=== PATIENT | female | born 1980 | race Caucasian/White ===

== ENCOUNTER 2022-05-28 08:14 | Outpatient (CLI) | payer OTHER, SELFPAY ==
[2022-05-28 14:20] LABS: Chloride* 105 mmol/L (96-114); Potassium* 4.8 mmol/L (3.6-5.1); Sodium* 137 mmol/L (135-149)
[2022-05-28 14:22] LABS: Cholesterol* 216 mg/dL (90-199); Creatinine* 0.9 mg/dL (0.5-1.5); Estimated Glomerular Filt Rate 81 ml/min
[2022-05-28 14:23] LABS: Blood Urea Nitrogen* 16 mg/dL (5-24); Calcium* 9.2 mg/dL (8.4-10.6); Carbon Dioxide* 26 mmol/L (20-32); Glucose* 95 mg/dL (60-115); Triglycerides* 109 mg/dL (40-149)
[2022-05-28 14:24] LABS: HDL Cholesterol* 45 mg/dL (>=50); LDL Cholesterol Calculated 149 mg/dL (<100)
== END 2022-05-28 08:15 | disposition home or self-care (01) ==
PROVIDERS: PCP Family Medicine; Visit Provider Family Medicine
DX: E78.2 Mixed hyperlipidemia (principal); E55.9 Vitamin D deficiency, unspecified; F41.9 Anxiety disorder, unspecified
CPT/HCPCS: 80048; 80061

== ENCOUNTER 2023-04-01 08:01 | Outpatient (CLI) | payer OTHER, SELFPAY ==
--- NOTE | 2023-04-01 08:15 | CRLHL7_ITS ---
For Patients: As a result of the Century Cures Act, medical imaging exams and procedure reports are released immediately into your electronic medical record. You may view this report before your referring provider. If you have questions, please contact your health care provider. BILATERAL SCREENING MAMMOGRAM WITH COMPUTER-AIDED DETECTION AND TOMOSYNTHESIS TECHNIQUE: CC and MLO views were obtained. These mammographic images have been obtained using full-field digital technique. These mammographic images were interpreted with the benefit of computer-aided detection. Breast Tomosynthesis was used in this interpretation. COMPARISON FILM: 03/26/21. FINDINGS: The breasts are heterogeneously dense, which may obscure small masses IMPRESSION: There is no radiographic evidence for malignancy. ASSESSMENT: BI-RADS Category 2: Benign RECOMMENDATION: Routine screening mammogram in 1 year. A lay language report of this examination will be provided to the patient. Srini Tavarez M.D. Diagnostic Radiologist [email or web address] SARA/Dictated by: Srini Tavarez MD @ 04/01/2023 11:27:00 AM (Electronically Signed)
== END 2023-04-01 08:02 | disposition home or self-care (01) ==
LOC: MAMMO 08:02
PROVIDERS: PCP Family Medicine; Visit Provider Family Medicine
DX: Z12.31 Encounter for screening mammogram for malignant neoplasm of breast (principal); R92.2 Inconclusive mammogram
CPT/HCPCS: 77063; 77067

== ENCOUNTER 2023-07-08 08:36 | Outpatient (CLI) | payer OTHER, SELFPAY | END 2023-07-08 08:37 | disposition home or self-care (01) | PROVIDERS: PCP Family Medicine; Visit Provider Family Medicine | DX: Z00.00 Encounter for general adult medical examination without abnormal findings (principal); E78.2 Mixed hyperlipidemia; E55.9 Vitamin D deficiency, unspecified; F41.9 Anxiety disorder, unspecified; Z83.49 Family history of other endocrine, nutritional and metabolic diseases | CPT/HCPCS: 80048; 80061; 82306; 84443 ==

== ENCOUNTER 2024-08-10 08:16 | Outpatient (CLI) | payer OTHER, SELFPAY | END 2024-08-10 08:17 | disposition home or self-care (01) | LOC: MAMMO 08:17 | PROVIDERS: PCP Family Medicine; Visit Provider Family Medicine | DX: Z12.31 Encounter for screening mammogram for malignant neoplasm of breast (principal); R92.333 Mammographic heterogeneous density, bilateral breasts; N63.20 Unspecified lump in the left breast, unspecified quadrant | CPT/HCPCS: 77063; 77067 ==

== ENCOUNTER 2024-08-15 07:41 | Outpatient (CLI) | payer OTHER, SELFPAY ==
--- NOTE | 2024-08-15 07:45 | CRLHL7_ITS ---
For Patients: As a result of the Cures Act, medical imaging exams and procedure reports are released immediately into your electronic medical record. You may view this report before your referring provider. If you have questions, please contact your health care provider. DIGITAL DIAGNOSTIC LEFT MAMMOGRAM USING TOMOSYNTHESIS AND COMPUTER-AIDED DETECTION LEFT BREAST ULTRASOUND CLINICAL HISTORY: LEFT breast mass/asymmetry. COMPARISON: 08/10/2024. TECHNIQUE: Digital LEFT mammogram in two projections. Tomosynthesis and CAD were used in this interpretation. Real-time ultrasound imaging of LEFT breast with imaging documentation. BREAST COMPOSITION: The breasts are heterogeneously dense, which may obscure small masses. FINDINGS: 3D spot compression CC/MLO LEFT breast mammogram images submitted. Persistent ovoid density within the retroareolar tissue without architectural distortion or suspicious calcifications. Targeted LEFT breast ultrasound performed. At 1 o`clock 1 cm from the nipple, there is a circumscribed anechoic cyst with increased through-transmission measuring 12 x 8 x 13 millimeters. An additional cyst is present at 1 o`clock 2 cm from the nipple measuring 2.9 x 1.1 x 2.4 cm. IMPRESSION: Benign fibrocystic change LEFT breast retroareolar region 1 o`clock 1-2 cm from the nipple. No suspicious findings. No evidence of malignancy. RECOMMENDATIONS: Routine screening mammography. A lay language report of this examination will be provided to the patient. BI-RADS Category 2: Benign Dictated by Srini Tavarez MD @ 08/15/2024 8:30:46 AM jj/Dictated by: Srini Tavarez MD @ 08/15/2024 8:30:00 AM (Electronically Signed)
--- NOTE | 2024-08-15 08:15 | CRLHL7_ITS ---
For Patients: As a result of the Cures Act, medical imaging exams and procedure reports are released immediately into your electronic medical record. You may view this report before your referring provider. If you have questions, please contact your health care provider. SEE DIGITAL DIAGNOSTIC LEFT MAMMOGRAM PERFORMED SAME DAY CRL:naida pascal/Dictated by: Srini Tavarez MD @ 08/15/2024 8:30:00 AM (Electronically Signed)
== END 2024-08-15 07:42 | disposition home or self-care (01) ==
PROVIDERS: PCP Family Medicine; Visit Provider Family Medicine
DX: N63.20 Unspecified lump in the left breast, unspecified quadrant (principal); R92.8 Other abnormal and inconclusive findings on diagnostic imaging of breast
CPT/HCPCS: 76642; 77065; G0279

== ENCOUNTER 2024-10-20 07:54 | Outpatient (CLI) | payer OTHER, SELFPAY ==
--- NOTE | 2024-10-20 09:15 | W.ANESCHARGE ---
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
--- NOTE | 2024-10-20 09:15 | P.ANES_ITS ---
Anesthesia Charges Start Date/Time Anesthesia Start Date: 10/20/24 Anesthesia Start Time: 08:37 Stop Date/Time Anesthesia Stop Date: 10/20/24 Anesthesia Stop Time: 09:08 Coding CPT Codes CPT Codes: ZACHS LWR INTST NDSC NOS - [id number] ([id number]) P2 - PATIENT W/MILD SYST DISEASE, QZ - DIRECTOR OF RADIO SERVICES SVC W/O SENIOR COMMISSARY AGENT BY
== END 2024-10-20 07:55 | disposition home or self-care (01) ==
LOC: OP CLINIC 07:54
PROVIDERS: PCP Family Medicine; Visit Provider Surgery
DX: Z12.11 Encounter for screening for malignant neoplasm of colon (principal); D12.0 Benign neoplasm of cecum; K52.9 Noninfective gastroenteritis and colitis, unspecified; Z83.719 Family history of colon polyps, unspecified
CPT/HCPCS: 00811; 45380; 45385; 88305; J2704